=== PATIENT | female | born 1970 | race Caucasian/White ===

== ENCOUNTER 2017-05-17 03:16 | Emergency (ER) | payer OTHER ==
[~2017-05-17 03:16] MED LIST: ACTOS30 MG PO; LIPITOR20 MG PO; METFORMIN HCL1000 MG PO; ZESTRIL,PRINIVI30 MG PO
[2017-05-17 04:10] LABS: HEMATOCRIT 26.8 % (36.0-46.0); HEMOGLOBIN 8.4 G/DL (11.9-15.5); MCH 29.3 PG (29.0-34.0); MCHC 31.3 G/DL (30.0-36.0); MCV 93.4 FL (83-99); NRBC (%) 5.3 /100 WBC (0-0); RBC DIS.WIDTH-CV 12.7 % (11.8-14.6); RBC DIS.WIDTH-SD 43.6 % (39-53); RED BLOOD COUNT 2.87 M/uL (3.80-5.20); WHITE BLOOD COUNT 16.3 K/uL (4.1-10.2)
[2017-05-17 04:21] LABS: AMYLASE 106 IU/L (1-118); CHLORIDE 96 mEq/L (99-109); POTASSIUM 5.3 mEq/L (3.7-5.4); SODIUM 142 mEq/L (136-147)
[2017-05-17 04:23] LABS: GLUCOSE 389 mg/dL (70-99)
[2017-05-17 04:26] LABS: SERUM ETHYL ALCOHOL 68 mg/dL
[2017-05-17 04:27] LABS: CREATININE 1.6 mg/dL (0.6-1.3); GFR ESTIMATE (CALCULATED) 37 mL/min/
[2017-05-17 04:28] LABS: UREA NITROGEN (BUN) 21 mg/dL (9-23)
[2017-05-17 04:30] LABS: LIPASE 47 U/L (1.0-51.0)
[2017-05-17 04:37] LABS: TROP-I INTERPRETATION POSITIVE
[2017-05-17 04:38] LABS: QUANTITATIVE HCG < 4.0 MIU/ML
[2017-05-17 04:43] LABS: TROPONIN-I 28.71 ng/mL (0.0-0.30)
[2017-05-17 04:51] LABS: INTER. NORMALIZED RATIO 1.3
[2017-05-17 04:54] LABS: PTT 34.5 SEC (25-37)
[2017-05-17 06:17] LABS: IMM.PLATELET FRACTION 7.7 (1-7); PLATELET COUNT 42 K/uL (156-360)
[2017-05-17 06:18] LABS: ABS NEUTROPHIL COUNT 11.9; ANISOCYTOSIS 1+; BAND NEUTROPHILS 6.9 % (0-8.0); BASOPHILS 0.9 %; BURR CELLS 2+; EOSINOPHIL ABS CT 0; METAMYELOCYTES 2.6 %; MICROCYTOSIS 1+; MONOCYTES 0.9 % (0-9.0); MYELOCYTES 2.6 %; NUCLEATED RBC'S 4.3; PLAT.SUFFICIENCY DECREASED; POIKILOCYTOSIS 2+; SEG.NEUTROPHILS 66.1 % (46.0-76.0)
== END 2017-05-17 04:00 ==
LOC: EME 03:16
PROVIDERS: Emergency Medicine
DX: I46.9 Cardiac arrest, cause unspecified (principal); K21.9 Gastro-esophageal reflux disease without esophagitis; Q96.9 Turner's syndrome, unspecified; Z91.14 Patient's other noncompliance with medication regimen
CPT/HCPCS: 80048; 81003; 82150; 83605; 83690; 84484; 84702; 85025; 85610; 85730; 86850; 86900; 86901; 87040; 92950; 99281; 99285; C1751; G0480